=== PATIENT | male | born 1990 | race Caucasian/White ===

== ENCOUNTER 2022-03-16 19:13 | Emergency (ER) | payer OTHER ==
[~2022-03-16] VITALS: Ht 172.7 cm; Wt 79.0 kg
--- NOTE | 2022-03-16 19:30 | PHYS DOC ---
General Adult EDM: Chief Complaint: SUICIDAL IDEATION HPI: HPI: Patient is a 32-year-old male coming in for suicidal ideations and alcohol abuse. Patient states he is withdrawing heavily for the past month, last drink about 2 hours prior to arrival. Patient states he has had 7-8 shots of liquor today. Patient has had numerous psychiatric inpatient admissions and has not been taking his bipolar medications. Patient states he also has been smoking some marijuana. (ERIKA RAMON MD) Review of Systems: Review of Systems: All other systems within normal limits except for as noted in the HPI (ERIKA RAMON MD) Physical Exam: PE: Constitutional: Well developed, well nourished, no acute distress, non-toxic appearance. [] HENT: Normocephalic, atraumatic, bilateral external ears normal, nose normal. [] Eyes: PERRLA, conjunctiva normal, no discharge. [] Neck: No rigidity, supple, no stridor. [] Cardiovascular: Regular rate and rhythm, brisk cap refill [] Lungs & Thorax: Non labored symmetric respirations, no tachypnea or respiratory distress [] Abdomen: Soft, nondistended. Skin: Warm, dry, no erythema, no rash. [] Back: Unremarkable Extremities: No deformities, range of motion grossly intact, no lower extremity edema [] Neurologic: Alert and oriented X 3, no focal deficits noted. [] Psychologic: Affect normal, judgement normal, suicidal ideation (ERIKA RAMON MD) EKG: EKG: Sinus rhythm, heart rate 63 bpm, normal axis, no STEMI, normal intervals. [] (ERIKA RAMON MD) Radiology/Procedures: Radiology/Procedures: [] (ERIKA RAMON MD) Heart Score: C/O Chest Pain: No Risk Factors: Risk Factors: DM, Current or recent (<one month) smoker, HTN, HLP, family history of CAD, obesity. Risk Scores: Score 0 - 3: 2.5% MACE over next 6 weeks - Discharge Home Score 4 - 6: 20.3% MACE over next 6 weeks - Admit for Clinical Observation Score 7 - 10: 72.7% MACE over next 6 weeks - Early Invasive Strategies (ERIKA RAMON MD) Course & Med Decision Making: Course & Med Decision Making Patient evaluated by PAT and request place for inpatient treatment since patient has been seen multiple times and failed to get outpatient treatment, and is now having suicidal ideations. Patient started on Librium taper in emergency department. (ERIKA RAMON MD) Course & Med Decision Making The patient had no further episodes or complications the emergency room. The behavioral health team was able to get him placed at [facility]. I provided a Librium taper for the patient at discharge. He was transported by ambulance. (RICARDO MARY DO) Dragon Disclaimer: Dragon Disclaimer: This electronic medical record was generated, in whole or in part, using a voice recognition dictation system. (ERIKA RAMON MD) Departure Departure: Impression: Primary Impression: Suicidal ideations Additional Impression: Alcohol dependence [facility] Condition: STABLE Referrals: PCP,VINI (PCP) Scripts Chlordiazepoxide Hcl (CHLORDIAZEPOXIDE HCL) 10 Mg Capsule 10 MG PO Q6HRS PRN for WITHDRAWAL IRRITABILITY, #40 CAP 10-50mg Q6h PRN withdrawal for first 24 hours then 10-25mg Q6h PRN withdrawal for days 2-5. Prov: RICARDO MARY DO 03/17/22 ERIKA RAMON MD Mar 16, 2022 19:30 RICARDO MARY DO Mar 17, 2022 17:36
[2022-03-16 20:37] LABS: BASO % 1 % (0-3); EOS # 0.2 x10^3/uL (0.0-0.7); EOS % 2 % (0-3); HEMATOCRIT 46.9 % (39.0-53.0); HEMOGLOBIN 16.3 g/dL (13.0-17.5); LYMPH % 26 % (24-48); MEAN CORPUSCULAR HEMOGLOBIN 32 pg (25-35); MEAN CORPUSCULAR HGB CONC 35 g/dL (31-37); MEAN CORPUSCULAR VOLUME 93 fL (79-100); MONO # 0.9 x10^3/uL (0.0-1.1); MONO % 12 % (0-9); NEUT # 4.5 x10^3uL (1.8-7.7); NEUT % 59 % (31-73); PLATELET COUNT 283 x10^3/uL (140-400); RED BLOOD COUNT 5.05 x10^6/uL (4.30-5.70); RED CELL DISTRIBUTION WIDTH 14.1 % (11.5-14.5); WHITE BLOOD COUNT 7.6 x10^3/uL (4.0-11.0)
[2022-03-16 20:45] LABS: BACTERIA,URINE 0 /HPF (0-FEW); BARBITURATES NEG (NEG); BENZODIAZEPINES NEG (NEG); CALCIUM 9.5 mg/dL (8.5-10.1); CANNABINOIDS POS (NEG); CLARITY,URINE CLEAR; COCAINE NEG (NEG); COLOR,URINE YELLOW; CREATININE 0.8 mg/dL (0.7-1.3); GFR 112.8; GLUCOSE,URINE NEG (NEG); METHADONE NEG (NEG); NITRITE,URINE NEG (NEG); OPIATES NEG (NEG); PHENCYCLIDINE NEG (NEG); POTASSIUM 4.3 mmol/L (3.5-5.1); RBC,URINE 0 /HPF (0-2); SQUAMOUS EPITHELIAL CELL,UR OCC /LPF; UROBILINOGEN,URINE 0.2 mg/dL (0.2 mg/dL); WBC,URINE RARE /HPF (0-4)
[2022-03-16 20:46] LABS: AMPHETAMINE/METHAMPHETAMINE NEG (NEG)
[2022-03-16 20:50] LABS: ETHANOL 63 mg/dL (0-10)
[2022-03-16 20:50] LABS: INFLUENZA A PATIENT NEGATIVE (NEGATIVE); INFLUENZA B PATIENT NEGATIVE (NEGATIVE)
[2022-03-16 20:51] LABS: ALBUMIN 4.2 g/dL (3.4-5.0); ALBUMIN/GLOBULIN RATIO 1.5 (1.0-1.7); MAGNESIUM 2.2 mg/dL (1.8-2.4); PHOSPHORUS 4.1 mg/dL (2.6-4.7); TOTAL BILIRUBIN 0.4 mg/dL (0.2-1.0)
[2022-03-16 20:52] LABS: ACETAMIN < 2.0 mcg/mL (10-30)
--- NOTE | 2022-03-16 21:48 | EKG ---
[address] [address] Test Date: 2022-03-16 Test Time: 19:46:00 Pat Name: VAN WELLER Department: Room: Gender: M Consumer Loan Manager: : 1990 Requested By: ERIKA RAMON Order Number: [id number] Reading MD: Ricardo Mir Measurements Intervals [place] Rate: 63 P: 29 [place]: 130 QRS: 16 QRSD: 90 T: 7 QT: 382 QTc: 394 Interpretive Statements SINUS RHYTHM NON SPECIFIC ST-T WAVE CHANGES Electronically Signed On 03-18-2022 18:18:27 CDT by Ricardo Mir
[2022-03-16] MEDS ORDERED: chlordiazePOXIDE HCL 25 MG CAPSULE PO ONE (22:45)
[2022-03-17] MEDS ORDERED: diphenhydrAMINE HCL 25 MG CAPSULE PO ONE (04:45)
[2022-03-17] MEDS ORDERED: chlordiazePOXIDE HCL 25 MG CAPSULE PO SCH ×2 (06:00→07:00)
[2022-03-17 10:19] VITALS: BP 132/64
[2022-03-17] MEDS ORDERED: CHLO10CA5 PO (10:42)
[2022-03-18] MEDS ORDERED: chlordiazePOXIDE HCL 25 MG CAPSULE PO SCH (23:00)
== END 2022-03-17 11:10 ==
LOC: ER 19:13
DX: R45.851 Suicidal ideations (principal); F10.20 Alcohol dependence, uncomplicated; Z20.822 Contact with and (suspected) exposure to COVID-19; Y90.3 Blood alcohol level of 60-79 mg/100 ml
CPT/HCPCS: 36415; 80053; 80307; 80329; 81001; 83690; 83735; 84100; 85025; 87428; 93005; 99285; G0480; U0003